=== PATIENT | male | born 1940 | race African-American/Black ===

== ENCOUNTER 2017-04-02 08:11 | Inpatient (IN) | payer OTHER ==
[~2017-04-02] VITALS: Ht 170.2 cm; Wt 81.6 kg
[~2017-04-02 08:11] MED LIST: COZAAR25 MG PO; FOLIC ACID1 MG PO; NEURONTIN300 MG PO; ZOVIRAX800 MG PO
[2017-04-05] MEDS ORDERED: PERCOCET 5-3251 EACH PO (10:58)
== END 2017-04-05 11:37 | disposition home or self-care (01) | DRG 375 ==
LOC: ER 08:11 → SEC-K 19:08 → SURH 04-04 17:19
PROC: 0W9G3ZX Drainage of Peritoneal Cavity, Percutaneous Approach, Diagnostic (ICD-10-PCS; principal; 2017-04-03)
PROC: BW21Y0Z Computerized Tomography (CT Scan) of Abdomen and Pelvis using Other Contrast, Unenhanced and Enhanced (ICD-10-PCS; 2017-04-03)
DX: C78.6 Secondary malignant neoplasm of retroperitoneum and peritoneum (principal); C18.9 Malignant neoplasm of colon, unspecified; R18.0 Malignant ascites; R33.8 Other retention of urine; R14.0 Abdominal distension (gaseous)

== ENCOUNTER 2017-04-10 08:52 | Inpatient (IN) | payer OTHER ==
[~2017-04-10] VITALS: Ht 165.1 cm; Wt 68.0 kg
[~2017-04-10 08:52] MED LIST changes: +PERCOCET 5-3251 EACH PO
== END 2017-04-11 20:34 | disposition expired | DRG 948 ==
LOC: ER 08:52 → SEC-K 17:54 → MEDI 17:54 → SEC-K 04-11 12:43 → MEDI 04-11 14:37
PROC: 4A033R1 Measurement of Arterial Saturation, Peripheral, Percutaneous Approach (ICD-10-PCS; principal; 2017-04-10)
DX: R18.8 Other ascites (principal); C78.6 Secondary malignant neoplasm of retroperitoneum and peritoneum; C18.9 Malignant neoplasm of colon, unspecified; R14.0 Abdominal distension (gaseous)